=== PATIENT | male | born 1970 | race Caucasian/White ===

== ENCOUNTER 2018-07-20 22:18 | Emergency (ER) | payer OTHER ==
[~2018-07-20] VITALS: Ht 170.2 cm; Wt 79.8 kg
[2018-07-20] MEDS ORDERED: MORPHINE SULFATE 2 MG/1 ML DISP.SYRIN IV ONE (23:30)
[2018-07-20] MEDS ORDERED: CLINDAMYCIN PHOSPHATE IV 600 MG in IV DEXTROSE 5% 100 ML IV ONE (23:30)
[2018-07-20] MEDS ORDERED: ONDANSETRON 4 MG/2 ML VIAL IV ONE (23:30)
[2018-07-20] MEDS ORDERED: IV NORMAL SALINE 1000 ML BAG IV ONE (23:30)
[2018-07-20] MEDS ORDERED: DEXAMETHASONE SOD PHOSPHATE 4 MG INJ IV ONE (23:30)
[2018-07-20 23:45] LABS: BASOPHILS # (AUTO) 0.1 K/uL (0.0-8.0); EOSINOPHILS # (AUTO) 0.4 K/uL (0.0-0.7); EOSINOPHILS % (AUTO) 2.7 % (0.0-7.0); HEMATOCRIT 41.9 % (36.7-47.1); HEMOGLOBIN 14.4 g/dL (12.5-16.3); LYMPHOCYTES # (AUTO) 3.3 K/uL (20.0-40.0); LYMPHOCYTES % (AUTO) 25.3 % (20.5-51.5); MEAN CORPUSCULAR HEMOGLOBIN 32.1 uug (23.8-33.4); MEAN CORPUSCULAR HGB CONC 34 g/dL (32.5-36.3); MEAN CORPUSCULAR VOLUME 93.2 fL (73.0-96.2); MONOCYTES # (AUTO) 0.8 K/uL (2.0-10.0); MONOCYTES % (AUTO) 5.8 % (0.0-11.0); NEUTROPHILS # (AUTO) 8.5 K/uL (1.8-8.9); NEUTROPHILS % (AUTO) 65.2 % (38.5-71.5); PLATELET COUNT (AUTO) 357 K/uL (152-348); RED BLOOD CELL COUNT(AUTO) 4.49 MIL/uL (4.06-5.63)
[2018-07-20] MEDS ORDERED: ONDANSETRON 4 MG/2 ML VIAL ONE (23:49)
[2018-07-20] MEDS ORDERED: MORPHINE SULFATE 4 MG/1 ML DISP.SYRIN ONE (23:49)
[2018-07-20] MEDS ORDERED: DEXAMETHASONE SOD PHOSPHATE 10 MG INJ ONE (23:49)
[2018-07-20 23:55] LABS: BILIRUBIN,DIRECT 0.1 mg/dL (0.0-0.2); BILIRUBIN,TOTAL 0.3 mg/dL (0.2-1.0); CREATININE 0.7 mg/dL (0.6-1.3); POTASSIUM 3.7 mmol/L (3.5-5.1); TOTAL PROTEIN, SERUM 7.4 g/dL (6.4-8.2)
[2018-07-21] MEDS ORDERED: CLINDAMYCIN PHOSPHATE 600 MG/4 ML VIAL ONE (00:08)
--- NOTE | 2018-07-21 00:25 | NUR ---
Pt out of ER for CT.
[2018-07-21] MEDS ORDERED: IV NORMAL SALINE 250 ML IV ONE (00:38)
[2018-07-21] MEDS ORDERED: IOHEXOL 300MG/ML 100 ML INFUS..BTL ONE (00:38)
[2018-07-21] MEDS ORDERED: NORMAL SALINE FLUSH 10 ML DISP.SYRIN ONE (00:38)
--- NOTE | 2018-07-21 02:00 | NUR ---
Morphine 4mg and Zofran 4mg administered via IV R Forearm 18G. See downtime paperwork.
[2018-07-21] MEDS ORDERED: MORPHINE SULFATE 4 MG/1 ML DISP.SYRIN ONE (02:21)
[2018-07-21] MEDS ORDERED: ONDANSETRON 4 MG/2 ML VIAL ONE (02:21)
--- NOTE | 2018-07-21 02:25 | NUR ---
Patient discharged to home in stable conditon. Written and verbal after care instructions given. Patient verbalizes understanding of instructions. Pt out of ER with steady gait, no acute signs of distress, VSS, all belongings taken, IV site discontinued.
[2018-07-21 03:00] VITALS: BP 105/75
== END 2018-07-21 02:30 | disposition home or self-care (01) ==
LOC: ER 22:19
DX: K12.2 Cellulitis and abscess of mouth (principal); F17.200 Nicotine dependence, unspecified, uncomplicated; I25.10 Atherosclerotic heart disease of native coronary artery without angina pectoris
CPT/HCPCS: 36415; 70030-TC; 70491; 83605; 85025; 85730; 87040; A4663; J1100; J2270; J2405; J3490; J7030; J7050; J7060; Q9967

== ENCOUNTER 2019-01-01 22:16 | Emergency (ER) | payer OTHER ==
[~2019-01-01] VITALS: Ht 167.6 cm; Wt 79.4 kg
--- NOTE | 2019-01-01 22:30 | NUR ---
Pt. ambulated into ED w/ c/o flu like symptoms - weakness, general malaise, and lower back pain x 3 days, denies N/V/D
--- NOTE | 2019-01-01 22:35 | NUR ---
Dr. Alanis at bedside for MSE
--- NOTE | 2019-01-01 22:37 | NUR ---
Influenza nares specimen collected and sent to lab,
[2019-01-01] MEDS ORDERED: KETOROLAC TROMETHAMINE 30 MG INJ ONE (22:39)
--- NOTE | 2019-01-01 22:40 | NUR ---
Rad. tech. at bedside for CXR
[2019-01-01] MEDS ORDERED: KETOROLAC TROMETHAMINE 30 MG INJ IM ONE (22:45)
[2019-01-01] MEDS ORDERED: HYDROCODONE/APAP 5-325MG TABLET ONE (23:38)
[2019-01-01] MEDS ORDERED: HYDROCODONE/APAP 5-325MG TABLET PO ONE (23:45)
--- NOTE | 2019-01-01 23:48 | NUR ---
Patient discharged to home in stable conditon. Written and verbal after care instructions given. Patient verbalizes understanding of instructions. Pt. d/c w/ prescription per MD, d/c papers signed, all belongings w/ pt., ID band removed, ambulated off unit w/ steady gait w/ family, left in private vehicle, instructed not to drive, NAD
== END 2019-01-01 23:50 | disposition home or self-care (01) ==
LOC: ER 22:19
DX: B34.9 Viral infection, unspecified (principal); R07.9 Chest pain, unspecified; F17.290 Nicotine dependence, other tobacco product, uncomplicated
CPT/HCPCS: 71045; 87400; 93005; 96372; 99284; 99406; J1885; A4663

== ENCOUNTER 2019-05-02 12:37 | Emergency (ER) | payer OTHER ==
[~2019-05-02] VITALS: Ht 170.2 cm; Wt 79.4 kg
--- NOTE | 2019-05-02 12:50 | NUR ---
ADMIT PT IN RM 2A, AMBULATORY, FROM HOME, ACCOMPANIED BY . C/O ACUTE EXCRUCIATING ABDOMENAL PAIN ON LOWER RIGHT SIDE LEVEL 10. SEEN AND EXAMINED BY MD WITH NEW ORDERS. AFEBRILE. NO N/V NOTED.
[2019-05-02] MEDS ORDERED: KETOROLAC TROMETHAMINE 30 MG INJ IVP ONE (13:00)
[2019-05-02] MEDS ORDERED: IV NORMAL SALINE 500 ML BAG IV ONE (13:00)
--- NOTE | 2019-05-02 13:00 | NUR ---
STARTED AN IV ACCESS LINE G20 ON RT FA G20 PATENT AND INTACT ORDERED.
[2019-05-02 13:09] LABS: BASOPHILS # (AUTO) 0.1 K/uL (0.0-8.0); BASOPHILS % (AUTO) 1.3 % (0.0-2.0); EOSINOPHILS # (AUTO) 0.1 K/uL (0.0-0.7); EOSINOPHILS % (AUTO) 1.1 % (0.0-7.0); HEMATOCRIT 43.9 % (36.7-47.1); HEMOGLOBIN 14.7 g/dL (12.5-16.3); LYMPHOCYTES # (AUTO) 2.5 K/uL (20.0-40.0); LYMPHOCYTES % (AUTO) 33.9 % (20.5-51.5); MEAN CORPUSCULAR HEMOGLOBIN 31.1 uug (23.8-33.4); MEAN CORPUSCULAR HGB CONC 34 g/dL (32.5-36.3); MEAN CORPUSCULAR VOLUME 92.7 fL (73.0-96.2); MONOCYTES # (AUTO) 0.6 K/uL (2.0-10.0); MONOCYTES % (AUTO) 8.4 % (0.0-11.0); NEUTROPHILS # (AUTO) 4.1 K/uL (1.8-8.9); NEUTROPHILS % (AUTO) 55.3 % (38.5-71.5); PLATELET COUNT (AUTO) 339 K/uL (152-348); RED BLOOD CELL COUNT(AUTO) 4.74 MIL/uL (4.06-5.63); WHITE BLOOD COUNT (AUTO) 7.4 K/uL (3.6-10.2)
[2019-05-02] MEDS ORDERED: KETOROLAC TROMETHAMINE 30 MG INJ ONE (13:09)
--- NOTE | 2019-05-02 13:10 | NUR ---
STARTED IVF NS 500ML INFUSING WELL ORDERED. MEDICATED WITH TORADOL 30MG SLOW IVP ORDERED FOR PAIN.
[2019-05-02 13:13] LABS: CREATININE 0.8 mg/dL (0.6-1.3); POTASSIUM 3.9 mmol/L (3.5-5.1)
--- NOTE | 2019-05-02 13:15 | NUR ---
PT TAKEN DOWN TO CT SCAN VIA GURNEY FOR CT ABDOMEN.
[2019-05-02 13:19] LABS: BILIRUBIN,DIRECT 0.1 mg/dL (0.0-0.2); BILIRUBIN,TOTAL 0.4 mg/dL (0.2-1.0); TOTAL PROTEIN, SERUM 7.5 g/dL (6.4-8.2)
[2019-05-02] MEDS ORDERED: HYDROMORPHONE 1 MG/1 ML DISP.SYRIN ONE ×2 (13:45→15:10)
[2019-05-02] MEDS ORDERED: HYDROMORPHONE 1 MG/1 ML DISP.SYRIN IV ONE ×2 (13:45→15:00)
--- NOTE | 2019-05-02 13:47 | NUR ---
PT IS MEDICATED WITH DILAUDID 1MG SLOW IVP FOR PAIN ORDERED. PT RELIEVED FROM THE PAIN.
--- NOTE | 2019-05-02 14:00 | NUR ---
PT VOIDED, SENT URINE TO LAB.
[2019-05-02 14:25] LABS: *BILIRUBIN,URIN 1+ (NEGATIVE); *BLOOD, URINE 3+ (NEGATIVE); *CLARITY,URINE SLIGHTLY CLOUDY (CLEAR); *COLOR,URINE DARK YELLOW (YELLOW); *KETONES,URINE NEGATIVE (NEGATIVE); *UROBILINOGEN,URINE 0.2 E.U./dl (NORMAL); LEUKOCYTE ESTERASE ,URINE NEGATIVE (NEGATIVE); NITRITE, URINE NEGATIVE (NEGATIVE); PH,URINE 6.5 (5.0-8.0); UGLUCOSE NEGATIVE (NEGATIVE)
--- NOTE | 2019-05-02 14:30 | NUR ---
ABLE TO EAT WITHOUT ANY PROBLEM. CONDITION IS IMPROVED.
[2019-05-02 14:36] LABS: RBC,URINE 80-100 /HPF (0-3); WBC,URINE 0-3 /HPF (0-3)
[2019-05-02 14:37] LABS: BACTERIA,URINE FEW /HPF (NONE SEEN)
[2019-05-02 14:38] LABS: SQUAMOUS EPITHELIAL CELL,UR NONE SEEN /HPF (NONE SEEN)
--- NOTE | 2019-05-02 15:15 | NUR ---
DISCHARGE INSTRUCTIONS AND PRESCRIPTIONS GIVEN TO PT WITH GOOD UNDERSTANDING. PT REQUESTED TO HAVE ANOTHER PAIN MEDICATION BEFORE GOING HOME.
--- NOTE | 2019-05-02 15:20 | NUR ---
PT IS MEDICATED AGAIN WITH DILAUDID 1MG SLOW IVP ORDERED.
--- NOTE | 2019-05-02 15:50 | NUR ---
PT IS DISCHARGED AMBULATORY ACCOMPANIED BY . CONDITION IS STABLE.
[2019-05-02 16:27] VITALS: BP 153/96
== END 2019-05-02 15:20 | disposition home or self-care (01) ==
LOC: EDBD 12:38 → ER 12:38
DX: N20.0 Calculus of kidney (principal); F17.290 Nicotine dependence, other tobacco product, uncomplicated
CPT/HCPCS: 36415; 74176; 80048; 80076; 81000; 81001; 83690; 85025; 96374; 96375; 96376; 99284; 99406; J1170 ×2; J1885; A4663; J7040

== ENCOUNTER 2019-05-13 14:47 | Emergency (ER) | payer OTHER ==
[~2019-05-13] VITALS: Ht 170.2 cm; Wt 79.4 kg
[2019-05-13] MEDS ORDERED: ONDANSETRON 4 MG/2 ML VIAL IV ONE (15:15)
[2019-05-13] MEDS ORDERED: MORPHINE SULFATE 2 MG/1 ML DISP.SYRIN IV ONE (15:15)
[2019-05-13] MEDS ORDERED: IV NORMAL SALINE 1000 ML BAG IV ONE (15:15)
[2019-05-13 15:19] LABS: BASOPHILS % (AUTO) 0.2 % (0.0-2.0); EOSINOPHILS # (AUTO) 0.1 K/uL (0.0-0.7); EOSINOPHILS % (AUTO) 0.7 % (0.0-7.0); HEMATOCRIT 42.6 % (36.7-47.1); HEMOGLOBIN 14.3 g/dL (12.5-16.3); LYMPHOCYTES # (AUTO) 2.6 K/uL (20.0-40.0); LYMPHOCYTES % (AUTO) 29.8 % (20.5-51.5); MEAN CORPUSCULAR HEMOGLOBIN 31.4 uug (23.8-33.4); MEAN CORPUSCULAR HGB CONC 34 g/dL (32.5-36.3); MEAN CORPUSCULAR VOLUME 93.3 fL (73.0-96.2); MONOCYTES # (AUTO) 0.5 K/uL (2.0-10.0); MONOCYTES % (AUTO) 6.2 % (0.0-11.0); NEUTROPHILS # (AUTO) 5.4 K/uL (1.8-8.9); NEUTROPHILS % (AUTO) 63.1 % (38.5-71.5); PLATELET COUNT (AUTO) 356 K/uL (152-348); RED BLOOD CELL COUNT(AUTO) 4.56 MIL/uL (4.06-5.63); WHITE BLOOD COUNT (AUTO) 8.6 K/uL (3.6-10.2)
[2019-05-13] MEDS ORDERED: MORPHINE SULFATE 4 MG/1 ML DISP.SYRIN ONE (15:20)
[2019-05-13] MEDS ORDERED: MORPHINE SULFATE 2 MG/1 ML DISP.SYRIN ONE (15:20)
[2019-05-13] MEDS ORDERED: ONDANSETRON 4 MG/2 ML VIAL ONE (15:21)
[2019-05-13 15:29] LABS: CARBON DIOXIDE 24 mmol/L (21-32); CHLORIDE 103 mmol/L (98-107); CREATININE 0.8 mg/dL (0.6-1.3); GLUCOSE 120 mg/dL (74-106); POTASSIUM 3.8 mmol/L (3.5-5.1); UREA NITROGEN, BLOOD 13 mg/dL (7-18)
[2019-05-13 15:33] LABS: ALANINE AMINOTRANSFERASE 35 U/L (16-63); ALKALINE PHOSPHATASE 96 U/L (50-136); ASPARTATE AMINOTRANSFERASE 14 U/L (15-37); BILIRUBIN,DIRECT < 0.1 mg/dL (0.0-0.2); BILIRUBIN,TOTAL 0.2 mg/dL (0.2-1.0); LIPASE 75 U/L (73-393); TOTAL PROTEIN, SERUM 7.4 g/dL (6.4-8.2)
[2019-05-13] MEDS ORDERED: HYDROMORPHONE 1 MG/1 ML DISP.SYRIN IV ONE (16:15)
[2019-05-13] MEDS ORDERED: HYDROMORPHONE 1 MG/1 ML DISP.SYRIN ONE (16:20)
[2019-05-13] MEDS ORDERED: KETOROLAC TROMETHAMINE 30 MG INJ IVP ONE (16:30)
[2019-05-13] MEDS ORDERED: KETOROLAC TROMETHAMINE 60 MG INJ IM ONE (16:48)
[2019-05-13 17:08] LABS: *BILIRUBIN,URIN NEGATIVE (NEGATIVE); *BLOOD, URINE NEGATIVE (NEGATIVE); *CLARITY,URINE CLEAR (CLEAR); *COLOR,URINE YELLOW (YELLOW); *KETONES,URINE NEGATIVE (NEGATIVE); *UROBILINOGEN,URINE 0.2 E.U./dl (NORMAL); LEUKOCYTE ESTERASE ,URINE NEGATIVE (NEGATIVE); NITRITE, URINE NEGATIVE (NEGATIVE); UGLUCOSE NEGATIVE (NEGATIVE)
[2019-05-13 18:12] VITALS: BP 139/81
== END 2019-05-13 18:13 | disposition home or self-care (01) ==
LOC: ER 14:47
DX: N20.1 Calculus of ureter (principal); F17.200 Nicotine dependence, unspecified, uncomplicated
CPT/HCPCS: 36415; 74176; 76705; 80048; 80076; 81001; 83690; 85025; 93005; 96361; 96374; 96375; 99284; J1170; J1885; J2270 ×2; J2405; A4663; J7030

== ENCOUNTER 2019-05-16 15:59 | Inpatient (IN) | payer OTHER ==
[~2019-05-16] VITALS: Ht 170.2 cm; Wt 79.4 kg
--- NOTE | 2019-05-16 16:06 | NUR ---
RECEIVED PT AMBULATORY, GUARDING RIGHT FLANK DUE TO PAIN FOR THE PAST 3DAYS. DENIES SOB, DENIES BLOOD IN URINE. RN STARTED SALINE LOCK ON LEFT DORSAL HAND MD AT BEDSIDE FOR HISTORY AND PHYSICAL
[2019-05-16] MEDS ORDERED: KETOROLAC TROMETHAMINE 60 MG INJ IM ONE (16:11)
[2019-05-16] MEDS ORDERED: KETOROLAC TROMETHAMINE 30 MG INJ IVP ONE ×2 (16:15→18:45)
[2019-05-16] MEDS ORDERED: TAMSULOSIN HCL 0.4 MG CAP.SR.24H PO ONE (16:15)
[2019-05-16] MEDS ORDERED: ONDANSETRON IV *ER 4 MG/2 ML VIAL IV ONE (16:15)
[2019-05-16] MEDS ORDERED: IV NORMAL SALINE 1000 ML BAG IV ONE (16:15)
[2019-05-16] MEDS ORDERED: MORPHINE SULFATE 4 MG/1 ML DISP.SYRIN IV ONE (16:15)
[2019-05-16] MEDS ORDERED: MORPHINE SULFATE 4 MG/1 ML DISP.SYRIN ONE (16:22)
[2019-05-16] MEDS ORDERED: ONDANSETRON 4 MG/2 ML VIAL ONE (16:22)
[2019-05-16] MEDS ORDERED: MORPHINE SULFATE 2 MG/1 ML DISP.SYRIN ONE (16:22)
[2019-05-16 16:24] LABS: BASOPHILS # (AUTO) 0.1 K/uL (0.0-8.0); EOSINOPHILS # (AUTO) 0.1 K/uL (0.0-0.7); EOSINOPHILS % (AUTO) 1.1 % (0.0-7.0); HEMATOCRIT 44.2 % (36.7-47.1); HEMOGLOBIN 14.8 g/dL (12.5-16.3); LYMPHOCYTES # (AUTO) 3.6 K/uL (20.0-40.0); LYMPHOCYTES % (AUTO) 30.1 % (20.5-51.5); MEAN CORPUSCULAR HGB CONC 33 g/dL (32.5-36.3); MEAN CORPUSCULAR VOLUME 92.8 fL (73.0-96.2); MONOCYTES # (AUTO) 0.8 K/uL (2.0-10.0); MONOCYTES % (AUTO) 6.8 % (0.0-11.0); NEUTROPHILS # (AUTO) 7.3 K/uL (1.8-8.9); PLATELET COUNT (AUTO) 351 K/uL (152-348); RED BLOOD CELL COUNT(AUTO) 4.76 MIL/uL (4.06-5.63); WHITE BLOOD COUNT (AUTO) 11.9 K/uL (3.6-10.2)
[2019-05-16 16:28] LABS: POTASSIUM 3.9 mmol/L (3.5-5.1)
[2019-05-16 16:49] LABS: *BILIRUBIN,URIN 1+ (NEGATIVE); *BLOOD, URINE 2+ (NEGATIVE); *CLARITY,URINE CLEAR (CLEAR); *COLOR,URINE YELLOW (YELLOW); *KETONES,URINE NEGATIVE (NEGATIVE); *UROBILINOGEN,URINE 0.2 E.U./dl (NORMAL); LEUKOCYTE ESTERASE ,URINE NEGATIVE (NEGATIVE); NITRITE, URINE NEGATIVE (NEGATIVE); UGLUCOSE NEGATIVE (NEGATIVE)
[2019-05-16 17:08] LABS: BACTERIA,URINE FEW /HPF (NONE SEEN); SQUAMOUS EPITHELIAL CELL,UR FEW /HPF (NONE SEEN); WBC,URINE 0-3 /HPF (0-3)
[2019-05-16] MEDS ORDERED: HYDROMORPHONE 1 MG/1 ML DISP.SYRIN IV ONE (17:15)
[2019-05-16] MEDS ORDERED: HYDROMORPHONE 1 MG/1 ML DISP.SYRIN ONE (17:31)
--- NOTE | 2019-05-16 18:23 | NUR ---
CALLED DR. GUY FOR UROLOGY CONSULT.
[2019-05-16] MEDS ORDERED: KETOROLAC TROMETHAMINE 15 MG INJ ONE (18:51)
--- NOTE | 2019-05-16 19:08 | NUR ---
ASSUMED CARE OF PATIENT. NO ACUTE DISTRESS NOTED. VSS
--- NOTE | 2019-05-16 20:25 | NUR ---
Report given to Steffi GALARZA on Med Surg
--- NOTE | 2019-05-16 20:41 | NUR ---
ADMITTED PATIENT IN MED SURG FLOOR UNDER THE CARE OF DR. RANDLE. BELONGING LIST DONE. PATIENT ALERT ORIENTED, CONTINENT, SKIN INTACT, AT BEDSIDE, CONT ON PAIN MANAGEMENT.
[2019-05-16] MEDS ORDERED: ACETAMINOPHEN 325 MG TABLET PO PRN (21:00)
[2019-05-16] MEDS ORDERED: IV 1/2NS 1000 ML 1,000 ML IV PRN (21:00)
[2019-05-16] MEDS ORDERED: ZOLPIDEM 5 MG TABLET PO PRN (21:00)
[2019-05-16] MEDS ORDERED: ONDANSETRON 4 MG/2 ML VIAL IV PRN (21:00)
[2019-05-16] MEDS: HYDROMORPHONE 1 MG/1 ML DISP.SYRIN IV PRN (21:26)
[2019-05-16] MEDS: TAMSULOSIN HCL 0.4 MG CAP.SR.24H PO SCH (21:43)
[2019-05-16] MEDS ORDERED: CEFTRIAXONE 1 G VIAL ONE (21:48)
[2019-05-16 21:49] VITALS: BP 128/78
[2019-05-16] MEDS: CEFTRIAXONE 1 G in IV DEXTROSE 5% 50 ML IV SCH (22:22)
--- NOTE | 2019-05-16 23:00 | NUR ---
PATIENT SEEN BY DR. ALVARADO WITH NEW ORDER. WILL ENDORSED ALL INSTRUCTIONS TO AM NURSE. CONT TO MONITOR.
[2019-05-16] MEDS: IV 1/2NS 1000 ML 1,000 ML IV PRN (23:55)
[2019-05-17] MEDS: HYDROMORPHONE 1 MG/1 ML DISP.SYRIN IV PRN ×4 (00:38→22:18)
[2019-05-17] MEDS: IV 1/2NS 1000 ML 1,000 ML IV PRN ×3 (04:29→16:59)
[2019-05-17 06:25] VITALS: BP 116/73
--- NOTE | 2019-05-17 06:47 | NUR ---
PATIENT ALERT ORIENTED, NO SOB NO CHEST PAIN. CONT ON PAIN MANAGEMENT DUE RENAL COLIC DIAGNOSIS. CONT TO STRAINED ALL URINE, NO STONE SEEN YET. CALL LIGHT WITHIN REACH.
[2019-05-17 07:34] LABS: BASOPHILS % (AUTO) 0.4 % (0.0-2.0); EOSINOPHILS # (AUTO) 0.1 K/uL (0.0-0.7); EOSINOPHILS % (AUTO) 1.2 % (0.0-7.0); HEMATOCRIT 40.8 % (36.7-47.1); HEMOGLOBIN 13.4 g/dL (12.5-16.3); LYMPHOCYTES # (AUTO) 2.1 K/uL (20.0-40.0); LYMPHOCYTES % (AUTO) 20.6 % (20.5-51.5); MEAN CORPUSCULAR HEMOGLOBIN 30.9 uug (23.8-33.4); MEAN CORPUSCULAR HGB CONC 33 g/dL (32.5-36.3); MEAN CORPUSCULAR VOLUME 94.1 fL (73.0-96.2); MONOCYTES % (AUTO) 9.4 % (0.0-11.0); NEUTROPHILS # (AUTO) 6.9 K/uL (1.8-8.9); NEUTROPHILS % (AUTO) 68.4 % (38.5-71.5); PLATELET COUNT (AUTO) 317 K/uL (152-348); RED BLOOD CELL COUNT(AUTO) 4.34 MIL/uL (4.06-5.63); WHITE BLOOD COUNT (AUTO) 10.1 K/uL (3.6-10.2)
[2019-05-17 07:43] LABS: BILIRUBIN,TOTAL 0.2 mg/dL (0.2-1.0); CREATININE 0.9 mg/dL (0.6-1.3); MAGNESIUM 1.9 mg/dL (1.8-2.4); PHOSPHOROUS 3.7 mg/dL (2.5-4.9); POTASSIUM 4.1 mmol/L (3.5-5.1); TOTAL PROTEIN, SERUM 6.4 g/dL (6.4-8.2)
[2019-05-17] MEDS: KETOROLAC TROMETHAMINE 15 MG INJ IVP SCH ×4 (07:56→20:34)
[2019-05-17] MEDS: TAMSULOSIN HCL 0.4 MG CAP.SR.24H PO SCH ×2 (08:07→20:32)
[2019-05-17] MEDS ORDERED: KETOROLAC TROMETHAMINE 30 MG INJ IVP SCH (09:00)
[2019-05-17 11:53] VITALS: BP 122/66
[2019-05-17] MEDS: NICOTINE 21 MG/24HR PATCH TD SCH (14:34)
[2019-05-17 16:10] VITALS: BP 126/78
--- NOTE | 2019-05-17 19:20 | NUR ---
Received patient awake in bed, alert and oriented x 4, ambulatory. No complaints at the moment. Noted with IV access on the right forearm to ongoing IV fluid, infusing well. Noted patient for surgery tomorrow, consent attached to chart. Patient instructed to remain on nothing per [place] after midnight in preparation for surgery. Patient will be picked up by OR staff at 6am per change of shift report. Patient requesting to have a shower tonight, will have UTILITY WORKER DRIVER arrange for a shower. Patient instructed that we need to keep straining his urine, patient verbalized understanding. Will continue to monitor.
[2019-05-17 20:00] VITALS: BP 116/71
[2019-05-17] MEDS: CEFTRIAXONE 1 G in IV DEXTROSE 5% 50 ML IV SCH (21:30)
[2019-05-18] MEDS: IV 1/2NS 1000 ML 1,000 ML IV PRN ×3 (01:22→15:40)
[2019-05-18] MEDS: HYDROMORPHONE 1 MG/1 ML DISP.SYRIN IV PRN ×5 (01:28→15:40)
--- NOTE | 2019-05-18 05:54 | NUR ---
Patient slept intermittently throughout the night. Remained nothing per [place] after midnight. Noted for surgery this morning. With complaints of lower abdomen and back pain, prn pain medications given with relief noted. Will continue to monitor until OR staff takes him to surgery room. Noted patient's present at bedside.
[2019-05-18] MEDS ORDERED: FENTANYL CITRATE 100 MCG/2 ML AMPUL ONE (06:15)
[2019-05-18] MEDS ORDERED: ROCURONIUM BROMIDE 50 MG/5 ML VIAL ONE (06:15)
[2019-05-18] MEDS ORDERED: MIDAZOLAM HCL 2 MG/2 ML VIAL ONE (06:15)
--- NOTE | 2019-05-18 06:15 | NUR ---
Patient sent to OR accompanied by OR nurses via hospital bed in stable condition.
[2019-05-18 06:21] LABS: BASOPHILS % (AUTO) 0.6 % (0.0-2.0); EOSINOPHILS # (AUTO) 0.2 K/uL (0.0-0.7); EOSINOPHILS % (AUTO) 1.9 % (0.0-7.0); HEMATOCRIT 36.8 % (36.7-47.1); HEMOGLOBIN 12.2 g/dL (12.5-16.3); LYMPHOCYTES # (AUTO) 3.4 K/uL (20.0-40.0); LYMPHOCYTES % (AUTO) 42.4 % (20.5-51.5); MEAN CORPUSCULAR HGB CONC 33 g/dL (32.5-36.3); MEAN CORPUSCULAR VOLUME 93.3 fL (73.0-96.2); MONOCYTES # (AUTO) 0.6 K/uL (2.0-10.0); MONOCYTES % (AUTO) 7.5 % (0.0-11.0); NEUTROPHILS # (AUTO) 3.8 K/uL (1.8-8.9); NEUTROPHILS % (AUTO) 47.6 % (38.5-71.5); PLATELET COUNT (AUTO) 295 K/uL (152-348); RED BLOOD CELL COUNT(AUTO) 3.94 MIL/uL (4.06-5.63)
[2019-05-18 06:23] VITALS: BP 117/74
[2019-05-18] MEDS ORDERED: IOHEXOL 300MG/ML 50 ML VIAL ONE (06:27)
[2019-05-18] MEDS ORDERED: METHYLENE BLUE 50 MG/10 ML AMPUL (0.5%) ONE (06:27)
[2019-05-18 06:52] LABS: ALANINE AMINOTRANSFERASE 23 U/L (16-63); ALKALINE PHOSPHATASE 83 U/L (50-136); ASPARTATE AMINOTRANSFERASE 21 U/L (15-37); BILIRUBIN,TOTAL 0.2 mg/dL (0.2-1.0); CARBON DIOXIDE 24 mmol/L (21-32); CHLORIDE 109 mmol/L (98-107); CREATININE 0.6 mg/dL (0.6-1.3); GLUCOSE 102 mg/dL (74-106); MAGNESIUM 1.9 mg/dL (1.8-2.4); PHOSPHOROUS 3.7 mg/dL (2.5-4.9); POTASSIUM 4.2 mmol/L (3.5-5.1); TOTAL PROTEIN, SERUM 5.9 g/dL (6.4-8.2); UREA NITROGEN, BLOOD 13 mg/dL (7-18)
--- NOTE | 2019-05-18 07:10 | NUR ---
RECEIVED REPORT FROM ADMINISTRATIVE SERVICES MANAGER NURSE PATIENT IN OPERATING ROOM. WILL CONTINUE TO MONITOR.
[2019-05-18] MEDS ORDERED: METOCLOPRAMIDE HCL 10 MG/2 ML VIAL IV ONE (07:30)
[2019-05-18] MEDS ORDERED: CEFAZOLIN 1 G VIAL IV ONE (07:30)
[2019-05-18] MEDS ORDERED: ONDANSETRON 4 MG/2 ML VIAL IV ONE (07:30)
[2019-05-18] MEDS ORDERED: PROPOFOL 200 MG/20 ML BOTTLE IV ONE (07:30)
[2019-05-18] MEDS ORDERED: NEOSTIGMINE METHYLSULFATE 10 MG/10 ML VIAL IM ONE (07:30)
[2019-05-18] MEDS ORDERED: ROCURONIUM BROMIDE 50 MG/5 ML VIAL IV ONE (07:30)
[2019-05-18] MEDS ORDERED: GLYCOPYRROLATE 0.2 MG/ML VIAL IV ONE (07:30)
--- NOTE | 2019-05-18 08:30 | NUR ---
RECEIVED PATIENT FROM OR, AWAKE ALERT AND ORIENTED X4. VITAL SIGNS WNL, NO COMPLICATIONS FROM SURGERY. STENT PLACEMENT IN RIGHT URETHRA. PATIENT REPORTING PAIN 6/10. AT BEDSIDE. BED IN LOWEST POSITION, SIDE RAILS UP X2, CALL LIGHT WITHIN REACH. WILL CONTINUE TO MONITOR.
[2019-05-18] MEDS: NICOTINE 21 MG/24HR PATCH TD SCH (08:31)
[2019-05-18] MEDS: TAMSULOSIN HCL 0.4 MG CAP.SR.24H PO SCH (08:31)
[2019-05-18] MEDS: KETOROLAC TROMETHAMINE 15 MG INJ IVP SCH ×3 (08:31→17:04)
[2019-05-18 11:54] VITALS: BP 127/78
[2019-05-18 15:20] VITALS: BP 102/70
[2019-05-18] MEDS ORDERED: CIPR-262 PO (16:09)
[2019-05-18] MEDS ORDERED: ONDA4TAB11 PO (16:09)
[2019-05-18] MEDS ORDERED: NICO-672 TD (16:09)
[2019-05-18] MEDS ORDERED: HYDR-4354 PO (16:09)
[2019-05-18] MEDS ORDERED: TAMS-3 PO (16:09)
--- NOTE | 2019-05-18 17:25 | NUR ---
DISCHARGED PATIENT PER DR DIAZ. REVIEWED DC INSTRUCTIONS WITH PATIENT AND . PRESCRIPTIONS GIVEN TO PATIENT. PATIENT VERBALIZES UNDERSTANDING OF DISCHARGE INSTRUCTIONS. DC'D IV AND REMOVED ID BRACELET. ACCOMPANIED PATIENT DOWNSTAIRS WITH NO COMPLICATIONS.
== END 2019-05-18 17:29 | disposition home or self-care (01) | DRG 465 ==
LOC: ER 15:59 → MEDSURG3 20:24
PROVIDERS: ADMIT Internal Medicine; ATTEND Internal Medicine
PROC: 0T768DZ Dilation of Right Ureter with Intraluminal Device, Via Natural or Artificial Opening Endoscopic (ICD-10-PCS; principal; 2019-05-18)
DX: N13.2 Hydronephrosis with renal and ureteral calculous obstruction (principal); D69.6 Thrombocytopenia, unspecified; K80.20 Calculus of gallbladder without cholecystitis without obstruction; Z87.442 Personal history of urinary calculi; E44.1 Mild protein-calorie malnutrition; Z68.27 Body mass index [BMI] 27.0-27.9, adult; F17.210 Nicotine dependence, cigarettes, uncomplicated; E78.1 Pure hyperglyceridemia; E78.5 Hyperlipidemia, unspecified; K57.90 Diverticulosis of intestine, part unspecified, without perforation or abscess without bleeding; K76.9 Liver disease, unspecified; D72.829 Elevated white blood cell count, unspecified
CPT/HCPCS: 36415; 71045; 74018; 76770; 83735; 84100; 85025; 93005; A4663; G0378; J0690; J0696; J1170; J1885; J2250; J2270; J2405; J2710; J2765; J3010; J3490; J7030; J7060; Q9967

== ENCOUNTER 2019-05-21 13:43 | Emergency (ER) | payer OTHER ==
[~2019-05-21] VITALS: Ht 170.2 cm; Wt 79.4 kg
[~2019-05-21 13:43] MED LIST: CIPR-262 PO; HYDR-4354 PO; NICO-672 TD; ONDA4TAB11 PO; TAMS-3 PO
[2019-05-21] MEDS ORDERED: KETOROLAC TROMETHAMINE 60 MG INJ IM ONE (14:24)
[2019-05-21] MEDS ORDERED: MORPHINE SULFATE 4 MG/1 ML DISP.SYRIN ONE (14:24)
[2019-05-21] MEDS ORDERED: ONDANSETRON 4 MG/2 ML VIAL ONE (14:24)
[2019-05-21] MEDS ORDERED: ONDANSETRON 4 MG/2 ML VIAL IV ONE (14:30)
[2019-05-21] MEDS ORDERED: MORPHINE SULFATE 4 MG/1 ML DISP.SYRIN IV ONE (14:30)
[2019-05-21] MEDS ORDERED: KETOROLAC TROMETHAMINE 30 MG INJ IVP ONE (14:30)
[2019-05-21] MEDS ORDERED: IV NORMAL SALINE 1000 ML BAG IV ONE (14:30)
[2019-05-21] MEDS ORDERED: HYDROMORPHONE 1 MG/1 ML DISP.SYRIN IV ONE ×2 (14:45→16:30)
[2019-05-21] MEDS ORDERED: HYDROMORPHONE 1 MG/1 ML DISP.SYRIN ONE ×2 (14:47→16:33)
[2019-05-21 14:58] LABS: BASOPHILS # (AUTO) 0.1 K/uL (0.0-8.0); BASOPHILS % (AUTO) 0.7 % (0.0-2.0); EOSINOPHILS # (AUTO) 0.2 K/uL (0.0-0.7); EOSINOPHILS % (AUTO) 0.9 % (0.0-7.0); HEMATOCRIT 40.1 % (36.7-47.1); HEMOGLOBIN 13.4 g/dL (12.5-16.3); LYMPHOCYTES # (AUTO) 2.5 K/uL (20.0-40.0); LYMPHOCYTES % (AUTO) 14.1 % (20.5-51.5); MEAN CORPUSCULAR HEMOGLOBIN 30.8 uug (23.8-33.4); MEAN CORPUSCULAR HGB CONC 34 g/dL (32.5-36.3); MEAN CORPUSCULAR VOLUME 92.1 fL (73.0-96.2); MONOCYTES # (AUTO) 1.3 K/uL (2.0-10.0); MONOCYTES % (AUTO) 7.2 % (0.0-11.0); NEUTROPHILS # (AUTO) 13.5 K/uL (1.8-8.9); NEUTROPHILS % (AUTO) 77.1 % (38.5-71.5); PLATELET COUNT (AUTO) 371 K/uL (152-348); RED BLOOD CELL COUNT(AUTO) 4.36 MIL/uL (4.06-5.63); WHITE BLOOD COUNT (AUTO) 17.5 K/uL (3.6-10.2)
[2019-05-21 15:17] LABS: BILIRUBIN,TOTAL 0.4 mg/dL (0.2-1.0); CREATININE 0.9 mg/dL (0.6-1.3); POTASSIUM 3.7 mmol/L (3.5-5.1)
[2019-05-21 15:43] LABS: *BLOOD, URINE 3+ (NEGATIVE); *CLARITY,URINE CLOUDY (CLEAR); *COLOR,URINE Brown (YELLOW); *KETONES,URINE TRACE (NEGATIVE); *UROBILINOGEN,URINE 0.2 E.U./dl (NORMAL); LEUKOCYTE ESTERASE ,URINE 1+ (NEGATIVE); NITRITE, URINE NEGATIVE (NEGATIVE); PH,URINE 6.5 (5.0-8.0); UGLUCOSE NEGATIVE (NEGATIVE)
[2019-05-21 16:00] LABS: *BILIRUBIN,URIN 1+ (NEGATIVE)
[2019-05-21 16:01] LABS: BACTERIA,URINE NONE SEEN /HPF (NONE SEEN); RBC,URINE 50-80 /HPF (0-3)
[2019-05-21 16:02] LABS: SQUAMOUS EPITHELIAL CELL,UR FEW /HPF (NONE SEEN)
--- NOTE | 2019-05-21 17:30 | NUR ---
Patient discharged to home in stable conditon. Written and verbal after care instructions given. Patient verbalizes understanding of instructions.
== END 2019-05-21 17:31 | disposition home or self-care (01) ==
LOC: ER 13:43
DX: G89.18 Other acute postprocedural pain (principal); R10.9 Unspecified abdominal pain; F17.200 Nicotine dependence, unspecified, uncomplicated; Z96.0 Presence of urogenital implants; Z79.2 Long term (current) use of antibiotics; Z79.899 Other long term (current) drug therapy
CPT/HCPCS: 36415; 74176; 76770; 80053; 81000; 81001; 85025; 87086; 96374; 96375; 96376; 99284; J1170 ×2; J1885; J2270; J2405; A4663; J7030

== ENCOUNTER 2019-06-02 22:12 | Inpatient (IN) | payer OTHER ==
[~2019-06-02] VITALS: Ht 170.2 cm; Wt 75.3 kg
[~2019-06-02 22:12] MED LIST changes: -NICO-672 TD
[2019-06-02] MEDS ORDERED: GABAPENTIN 600 MG (22:27)
[2019-06-02] MEDS ORDERED: OXYCODONE (22:27)
[2019-06-02] MEDS ORDERED: ACETAMINOPHEN (22:27)
[2019-06-02] MEDS ORDERED: SULFAMETHOXAZOLE/TRIMETHOPRIM (22:27)
[2019-06-02] MEDS ORDERED: DOCU-141 PO (22:27)
[2019-06-02] MEDS ORDERED: ONDANSETRON 4 MG/2 ML VIAL IV ONE (23:00)
[2019-06-02] MEDS ORDERED: MORPHINE SULFATE 4 MG/1 ML DISP.SYRIN IV ONE (23:00)
[2019-06-02] MEDS ORDERED: IV NORMAL SALINE 1000 ML BAG IV ONE (23:00)
[2019-06-02] MEDS ORDERED: MORPHINE SULFATE 4 MG/1 ML DISP.SYRIN ONE (23:13)
[2019-06-02] MEDS ORDERED: ONDANSETRON 4 MG/2 ML VIAL ONE (23:14)
[2019-06-02 23:26] LABS: BASOPHILS # (AUTO) 0.1 K/uL (0.0-8.0); BASOPHILS % (AUTO) 1.2 % (0.0-2.0); EOSINOPHILS # (AUTO) 0.3 K/uL (0.0-0.7); EOSINOPHILS % (AUTO) 2.9 % (0.0-7.0); HEMATOCRIT 38.7 % (36.7-47.1); HEMOGLOBIN 13.1 g/dL (12.5-16.3); LYMPHOCYTES # (AUTO) 3.2 K/uL (20.0-40.0); LYMPHOCYTES % (AUTO) 34.1 % (20.5-51.5); MEAN CORPUSCULAR HEMOGLOBIN 31.7 uug (23.8-33.4); MEAN CORPUSCULAR HGB CONC 34 g/dL (32.5-36.3); MEAN CORPUSCULAR VOLUME 93.5 fL (73.0-96.2); MONOCYTES # (AUTO) 0.7 K/uL (2.0-10.0); MONOCYTES % (AUTO) 7.6 % (0.0-11.0); NEUTROPHILS # (AUTO) 5.1 K/uL (1.8-8.9); NEUTROPHILS % (AUTO) 54.2 % (38.5-71.5); PLATELET COUNT (AUTO) 402 K/uL (152-348); RED BLOOD CELL COUNT(AUTO) 4.14 MIL/uL (4.06-5.63); WHITE BLOOD COUNT (AUTO) 9.3 K/uL (3.6-10.2)
[2019-06-02] MEDS ORDERED: HYDROMORPHONE 1 MG/1 ML DISP.SYRIN IV ONE (23:45)
[2019-06-02] MEDS ORDERED: HYDROMORPHONE 1 MG/1 ML DISP.SYRIN ONE (23:49)
[2019-06-02 23:59] LABS: BILIRUBIN,DIRECT 0.1 mg/dL (0.0-0.2); BILIRUBIN,TOTAL 0.2 mg/dL (0.2-1.0); CREATININE 0.9 mg/dL (0.6-1.3); POTASSIUM 3.7 mmol/L (3.5-5.1); TOTAL PROTEIN, SERUM 6.8 g/dL (6.4-8.2)
[2019-06-03] MEDS ORDERED: CEFTRIAXONE 1 G in IV DEXTROSE 5% 50 ML IV ONE ×2
[2019-06-03] MEDS ORDERED: CEFTRIAXONE 1 G VIAL ONE (00:06)
[2019-06-03 00:30] VITALS: BP 131/80
[2019-06-03] MEDS ORDERED: MAGNESIUM HYDROXIDE 30 ML LIQUID UDC PO PRN (01:30)
[2019-06-03] MEDS ORDERED: ONDANSETRON 4 MG/2 ML VIAL IV PRN (01:30)
[2019-06-03] MEDS ORDERED: ACETAMINOPHEN 325 MG TABLET PO PRN (01:30)
[2019-06-03] MEDS: MORPHINE SULFATE 4 MG/1 ML DISP.SYRIN IV PRN ×3 (01:55→08:43)
[2019-06-03] MEDS ORDERED: IV NS 1000 ML 1,000 ML IV PRN (02:00)
[2019-06-03 05:57] VITALS: BP 117/66
[2019-06-03 10:17] LABS: *BILIRUBIN,URIN NEGATIVE (NEGATIVE); *BLOOD, URINE 3+ (NEGATIVE); *CLARITY,URINE SLIGHTLY CLOUDY (CLEAR); *COLOR,URINE YELLOW (YELLOW); *KETONES,URINE NEGATIVE (NEGATIVE); *UROBILINOGEN,URINE 0.2 E.U./dl (NORMAL); LEUKOCYTE ESTERASE ,URINE 1+ (NEGATIVE); NITRITE, URINE NEGATIVE (NEGATIVE); PH,URINE 6.5 (5.0-8.0); UGLUCOSE NEGATIVE (NEGATIVE)
[2019-06-03 10:46] LABS: RBC,URINE 50-80 /HPF (0-3)
[2019-06-03 10:47] LABS: BACTERIA,URINE FEW /HPF (NONE SEEN); SQUAMOUS EPITHELIAL CELL,UR FEW /HPF (NONE SEEN)
[2019-06-03] MEDS: HYDROMORPHONE 1 MG/1 ML DISP.SYRIN IV PRN ×2 (11:27→15:44)
[2019-06-03 11:41] VITALS: BP 105/71
[2019-06-03 16:00] VITALS: BP 114/80
[2019-06-03] MEDS ORDERED: TAMSULOSIN HCL 0.4 MG CAP.SR.24H PO SCH (21:00)
== END 2019-06-03 19:15 | disposition home or self-care (01) | DRG 465 ==
LOC: ER 22:12 → MEDSURG3 23:55
PROVIDERS: ADMIT Nurse Practitioner Acute Care; ATTEND Nurse Practitioner Acute Care
DX: N20.0 Calculus of kidney (principal); N02.9 Recurrent and persistent hematuria with unspecified morphologic changes; N20.1 Calculus of ureter; R10.9 Unspecified abdominal pain; Z87.442 Personal history of urinary calculi; Z82.49 Family history of ischemic heart disease and other diseases of the circulatory system; Z96.0 Presence of urogenital implants
CPT/HCPCS: 36415; 83690; 85025; 87086; A4663; G0378; J0696; J1170; J2270; J2405; J7030

== ENCOUNTER 2019-07-18 20:27 | Emergency (ER) | payer OTHER ==
[~2019-07-18] VITALS: Ht 170.2 cm; Wt 76.2 kg
[~2019-07-18 20:27] MED LIST changes: +ACETAMINOPHEN; -CIPR-262 PO; +DOCU-141 PO; +GABAPENTIN 600 MG; -HYDR-4354 PO; -ONDA4TAB11 PO; +OXYCODONE; +SULFAMETHOXAZOLE/TRIMETHOPRIM
[2019-07-18] MEDS ORDERED: HYDROMORPHONE 1 MG/1 ML DISP.SYRIN IM ONE (20:45)
[2019-07-18] MEDS ORDERED: HYDROMORPHONE 1 MG/1 ML DISP.SYRIN ONE (20:45)
[2019-07-18] MEDS ORDERED: ONDANSETRON 4 MG/2 ML VIAL ONE (20:45)
[2019-07-18] MEDS ORDERED: ONDANSETRON 4 MG/2 ML VIAL IM ONE (20:45)
--- NOTE | 2019-07-18 21:00 | NUR ---
Patient discharged to home in stable conditon. Written and verbal after care instructions given. Patient verbalizes understanding of instructions. Pt walked out of ER via crutches, states will drive him home. No acute distress noted.
[2019-07-18 21:02] VITALS: BP 121/80
== END 2019-07-18 21:03 | disposition home or self-care (01) ==
LOC: ER 20:27
DX: S90.32XA Contusion of left foot, initial encounter (principal); F17.200 Nicotine dependence, unspecified, uncomplicated; Z88.1 Allergy status to other antibiotic agents; Z79.899 Other long term (current) drug therapy; W20.8XXA Other cause of strike by thrown, projected or falling object, initial encounter; Y93.89 Activity, other specified; Y92.89 Other specified places as the place of occurrence of the external cause; Y99.8 Other external cause status
CPT/HCPCS: 73630; 96372 ×2; 99283; J1170; J2405; A4663

== ENCOUNTER 2019-11-27 14:05 | Emergency (ER) | payer OTHER ==
[~2019-11-27] VITALS: Ht 170.2 cm; Wt 77.1 kg
--- NOTE | 2019-11-27 15:38 | NUR ---
Dr Madrid at the bedside for MSE.
[2019-11-27] MEDS ORDERED: ONDANSETRON 4 MG/2 ML VIAL IM ONE ×2 (16:00→16:45)
[2019-11-27] MEDS ORDERED: HYDROMORPHONE 1 MG/1 ML DISP.SYRIN IM ONE ×2 (16:00→16:45)
[2019-11-27] MEDS ORDERED: ONDANSETRON 4 MG/2 ML VIAL ONE ×2 (16:01→16:45)
[2019-11-27] MEDS ORDERED: HYDROMORPHONE 2 MG/1 ML DISP.SYRIN ONE (16:01)
[2019-11-27 16:12] LABS: *BILIRUBIN,URIN NEGATIVE (NEGATIVE); *BLOOD, URINE NEGATIVE (NEGATIVE); *CLARITY,URINE CLEAR (CLEAR); *COLOR,URINE YELLOW (YELLOW); *KETONES,URINE NEGATIVE (NEGATIVE); *UROBILINOGEN,URINE 0.2 E.U./dl (NORMAL); LEUKOCYTE ESTERASE ,URINE NEGATIVE (NEGATIVE); NITRITE, URINE NEGATIVE (NEGATIVE); UGLUCOSE NEGATIVE (NEGATIVE)
[2019-11-27] MEDS ORDERED: HYDROMORPHONE 1 MG/1 ML DISP.SYRIN ONE (16:45)
[2019-11-27 16:52] VITALS: BP 110/78
--- NOTE | 2019-11-27 16:53 | NUR ---
Patient discharged to home in stable conditon. Written and verbal after care instructions given. Patient verbalizes understanding of instructions. Pt left Er accompained by .
[2019-12-04] MEDS ORDERED: ATOR40TA PO (11:19)
[2019-12-04] MEDS ORDERED: ASPI-605 PO (11:19)
[2019-12-04] MEDS ORDERED: OXYC-133 PO (11:19)
== END 2019-11-27 16:54 | disposition home or self-care (01) ==
LOC: ER 14:17
DX: G62.9 Polyneuropathy, unspecified (principal); F17.200 Nicotine dependence, unspecified, uncomplicated; Z88.1 Allergy status to other antibiotic agents; Z79.899 Other long term (current) drug therapy
CPT/HCPCS: 72040; 81001; 96372 ×4; 99284; J1170 ×2; J2405 ×2; A4663

== ENCOUNTER 2019-12-02 04:09 | Inpatient (IN) | payer OTHER ==
[~2019-12-02] VITALS: Ht 167.6 cm; Wt 79.8 kg
[2019-12-02] MEDS ORDERED: NITROGLYCERIN OINT 1 GM PACKET TP ONE ×2 (04:30→04:32)
[2019-12-02] MEDS ORDERED: ONDANSETRON 4 MG/2 ML VIAL IV ONE (04:30)
[2019-12-02] MEDS ORDERED: NITROGLYCERIN 0.4 MG/TAB BOTTLE SL ONE ×2 (04:30→04:33)
[2019-12-02] MEDS ORDERED: HYDROCODONE/APAP 10-325 MG TABLET PO ONE (04:30)
[2019-12-02] MEDS ORDERED: ASPIRIN 81 MG TAB.CHEW PO ONE (04:30)
[2019-12-02] MEDS ORDERED: HYDROMORPHONE HCL 2 MG TABLET PO ONE (04:30)
[2019-12-02] MEDS ORDERED: ASPI81TA31 PO (04:31)
[2019-12-02] MEDS ORDERED: ASPIRIN 81 MG TAB.CHEW ONE (04:32)
[2019-12-02] MEDS ORDERED: ONDANSETRON 4 MG/2 ML VIAL ONE (04:33)
[2019-12-02] MEDS ORDERED: HYDROMORPHONE HCL 2 MG TABLET ONE (04:33)
[2019-12-02 04:43] LABS: BASOPHILS # (AUTO) 0.2 K/uL (0.0-8.0); BASOPHILS % (AUTO) 1.4 % (0.0-2.0); EOSINOPHILS # (AUTO) 0.2 K/uL (0.0-0.7); EOSINOPHILS % (AUTO) 1.5 % (0.0-7.0); HEMATOCRIT 41.5 % (36.7-47.1); HEMOGLOBIN 14.4 g/dL (12.5-16.3); LYMPHOCYTES # (AUTO) 3.1 K/uL (20.0-40.0); LYMPHOCYTES % (AUTO) 27.1 % (20.5-51.5); MEAN CORPUSCULAR HEMOGLOBIN 32.2 uug (23.8-33.4); MEAN CORPUSCULAR HGB CONC 35 g/dL (32.5-36.3); MEAN CORPUSCULAR VOLUME 92.6 fL (73.0-96.2); MONOCYTES # (AUTO) 0.9 K/uL (2.0-10.0); MONOCYTES % (AUTO) 7.5 % (0.0-11.0); NEUTROPHILS # (AUTO) 7.2 K/uL (1.8-8.9); NEUTROPHILS % (AUTO) 62.5 % (38.5-71.5); PLATELET COUNT (AUTO) 373 K/uL (152-348); RED BLOOD CELL COUNT(AUTO) 4.48 MIL/uL (4.06-5.63); WHITE BLOOD COUNT (AUTO) 11.5 K/uL (3.6-10.2)
[2019-12-02 04:50] LABS: CREATININE 0.7 mg/dL (0.6-1.3); POTASSIUM 3.8 mmol/L (3.5-5.1)
[2019-12-02 05:02] LABS: BILIRUBIN,DIRECT 0.1 mg/dL (0.0-0.2); BILIRUBIN,TOTAL 0.2 mg/dL (0.2-1.0); TOTAL PROTEIN, SERUM 7.4 g/dL (6.4-8.2)
--- NOTE | 2019-12-02 05:35 | NUR ---
Pt is resting comfortably in bed. States chest pain subsided. Vital signs stable.
--- NOTE | 2019-12-02 06:14 | NUR ---
Spoke with Starla (case investigator) about patient status. She will call back regarding transfer info.
--- NOTE | 2019-12-02 06:57 | NUR ---
Pt's insurance states they are unable to find bed for pt. Was given authorization for pt to be admitted here.
--- NOTE | 2019-12-02 07:45 | NUR ---
SHAHEEN MERCER NP AT BEDSIDE.
--- NOTE | 2019-12-02 08:11 | NUR ---
pt transfered to floor in stable condition.
--- NOTE | 2019-12-02 08:13 | NUR ---
DR. JOHNSTON, RETAIL CUSTOMER SERVICE REPRESENTATIVE AT BEDSIDE.
[2019-12-02] MEDS ORDERED: SWABABLE VALVE TRANSFER SET EA MC ONE (08:32)
--- NOTE | 2019-12-02 08:32 | NUR ---
PT WILL BE GOING TO CT SCAN PER DR. JOHNSTON AND ER ORDER AND AFTER CT WILL GO TO FLOOR.
[2019-12-02] MEDS ORDERED: IV NORMAL SALINE 250 ML IV ONE ×2 (08:33→09:30)
[2019-12-02] MEDS ORDERED: IOHEXOL 350 100 ML INFUS..BTL ONE (08:33)
[2019-12-02] MEDS ORDERED: ACETAMINOPHEN 325 MG TABLET PO PRN (09:00)
[2019-12-02] MEDS ORDERED: ZOLPIDEM 5 MG TABLET PO PRN (09:00)
[2019-12-02] MEDS ORDERED: MORPHINE SULFATE 2 MG/1 ML DISP.SYRIN IV PRN (09:00)
[2019-12-02] MEDS ORDERED: ONDANSETRON 4 MG/2 ML VIAL IV PRN (09:00)
[2019-12-02] MEDS ORDERED: MAGNESIUM HYDROXIDE 30 ML LIQUID UDC PO PRN (09:00)
--- NOTE | 2019-12-02 09:00 | NUR ---
Admitted 49 year old male to [facility] with dx of chest pain r/o ACS. Patient is AAOx4. Verbalizing chest pain is relieved but has back and arm/hand pain of 10/10; will medicate appropriately. SR on the monitor. IV on L AC intact and patent. Ambulatory. Admission and initial assessment completed. Plan of care initiated. Safety measures implemented. Will continue to monitor.
[2019-12-02] MEDS: HYDROMORPHONE 1 MG/1 ML DISP.SYRIN IV PRN ×3 (12:21→19:59)
[2019-12-02 12:26] VITALS: BP 105/65
[2019-12-02 16:26] VITALS: BP 96/51
[2019-12-02] MEDS: HYDROCODONE/APAP 5-325MG TABLET PO PRN (16:35)
--- NOTE | 2019-12-02 19:00 | NUR ---
PATIENT ALERT ORIENTED NO SOB NO CHEST PAIN, TELE MONITOR SINUS RHYTHM AT THIS TIME. PATIENT ON CONTINUES PAIM CHADWICK Addendum: 12/02/19 at 2025 by MIKAL ALDRIDGE RN PATIENT ALERT ORIENTED NO SOB NO CHEST PAIN, TELE MONITOR SINUS RHYTHM AT THIS TIME. PATIENT ON CONTINUES PAIN CHADWICK CHARTING IN ERROR.
--- NOTE | 2019-12-02 19:45 | NUR ---
PATIENT ALERT ORIENTED, NO SOB NO CHEST PAIN, TELE MONITOR SINUS RHYTHM AT THIS TIME. PATIENT STILL COMPLAIN OF BACK PAIN, CONT ON PAIN MANAGEMENT. CALL LIGHT WITHIN REACH, CONT TO MONITOR.
[2019-12-02 19:59] VITALS: BP 92/53
[2019-12-02] MEDS: ATORVASTATIN 40 MG TABLET PO SCH (20:13)
--- NOTE | 2019-12-02 20:16 | NUR ---
PATIENT FOR CARDIAC CT [facility] TOMORROW IN AM..NPO AFTER MIDNIGHT. NOTIFY THE PATIENT.
[2019-12-02 20:39] LABS: *BILIRUBIN,URIN NEGATIVE (NEGATIVE); *BLOOD, URINE NEGATIVE (NEGATIVE); *CLARITY,URINE CLEAR (CLEAR); *COLOR,URINE YELLOW (YELLOW); *KETONES,URINE TRACE (NEGATIVE); *UROBILINOGEN,URINE 0.2 E.U./dl (NORMAL); LEUKOCYTE ESTERASE ,URINE NEGATIVE (NEGATIVE); NITRITE, URINE NEGATIVE (NEGATIVE); UGLUCOSE NEGATIVE (NEGATIVE)
[2019-12-02 20:49] LABS: *AMPHETAMINE, URINE NEGATIVE (NEGATIVE); *BARBITURATE, URINE NEGATIVE (NEGATIVE); *CANNABINOID, URINE NEGATIVE (NEGATIVE); *COCCAINE, URINE NEGATIVE (NEGATIVE); *OPIATE, URINE POSITIVE (NEGATIVE); *PHENCYCLIDINE SCREEN,URINE NEGATIVE (NEGATIVE)
[2019-12-02 21:33] LABS: MUCUS,URINE MANY /LPF (0-FEW)
[2019-12-03] VITALS: BP 120/63
[2019-12-03] MEDS: HYDROMORPHONE 1 MG/1 ML DISP.SYRIN IV PRN ×6 (00:06→21:12)
[2019-12-03 04:00] VITALS: BP 99/68
--- NOTE | 2019-12-03 05:05 | NUR ---
PATIENT SLEPT MOST OF THE NIGHT, NO SOB NO CHEST PAIN, TELE MONITOR SINUS RHYTHM AT THIS TIME, CONT ON PAIN MANAGEMENT OF HANDS AND ARMS, REMAIN NPO. CONT TO MONITOR.
[2019-12-03] MEDS: PANTOPRAZOLE SODIUM 40 MG TABLET.DR PO SCH (06:42)
[2019-12-03 08:45] LABS: BASOPHILS # (AUTO) 0.1 K/uL (0.0-8.0); BASOPHILS % (AUTO) 0.9 % (0.0-2.0); EOSINOPHILS # (AUTO) 0.1 K/uL (0.0-0.7); EOSINOPHILS % (AUTO) 1.6 % (0.0-7.0); HEMATOCRIT 42.7 % (36.7-47.1); HEMOGLOBIN 14.3 g/dL (12.5-16.3); LYMPHOCYTES # (AUTO) 2.6 K/uL (20.0-40.0); LYMPHOCYTES % (AUTO) 33.5 % (20.5-51.5); MEAN CORPUSCULAR HEMOGLOBIN 32.1 uug (23.8-33.4); MEAN CORPUSCULAR HGB CONC 34 g/dL (32.5-36.3); MEAN CORPUSCULAR VOLUME 95.6 fL (73.0-96.2); MONOCYTES # (AUTO) 0.8 K/uL (2.0-10.0); MONOCYTES % (AUTO) 9.7 % (0.0-11.0); NEUTROPHILS # (AUTO) 4.3 K/uL (1.8-8.9); NEUTROPHILS % (AUTO) 54.3 % (38.5-71.5); PLATELET COUNT (AUTO) 335 K/uL (152-348); RED BLOOD CELL COUNT(AUTO) 4.46 MIL/uL (4.06-5.63); WHITE BLOOD COUNT (AUTO) 7.8 K/uL (3.6-10.2)
[2019-12-03 09:00] LABS: BILIRUBIN,TOTAL 0.3 mg/dL (0.2-1.0); CREATININE 0.7 mg/dL (0.6-1.3); POTASSIUM 4.1 mmol/L (3.5-5.1); TOTAL PROTEIN, SERUM 6.9 g/dL (6.4-8.2)
[2019-12-03] MEDS ORDERED: ASPIRIN 81 MG TAB.CHEW PO SCH (09:00)
[2019-12-03] MEDS: ASPIRIN 81 MG TAB.CHEW PO SCH (09:00)
--- NOTE | 2019-12-03 09:00 | NUR ---
MEDICATED WITH DILAUDID ORDERED PER PATIENTS REQUEST.WILL CHECK EFFECTIVENESS
--- NOTE | 2019-12-03 10:45 | NUR ---
PATIENT PICKED UP BY AMBULANCE TO [facility] FOR CT CARDIAC ORDERED
[2019-12-03 11:22] VITALS: BP 116/72
--- NOTE | 2019-12-03 12:35 | NUR ---
PATIENT RETURNED FROM [facility] CT CARDIO IN SATISFACTORY CONDITION AWAITING FOR REPORTS FROM [place].
[2019-12-03 15:52] VITALS: BP 105/62
--- NOTE | 2019-12-03 17:12 | NUR ---
UP AND OUT IN THE HALLWAY AMBULATING STILL COMPLAINING OF PAIN AND NUMGNESS ON BOTH LEFT AND RIGHT ARM FINGERS BUT IS ABLE TO MOVE THEM MEDICATED FOR PAIN ORDERED PER HIS REQUEST TELE DISCONTINUED MADE COMFORTABLE WILL CONTINUE TO OBSERVE.
[2019-12-03 20:36] VITALS: BP 126/90
[2019-12-03] MEDS: ATORVASTATIN 40 MG TABLET PO SCH (21:12)
[2019-12-04] MEDS: HYDROMORPHONE 1 MG/1 ML DISP.SYRIN IV PRN ×4 (01:12→13:15)
[2019-12-04 04:54] VITALS: BP 119/77
[2019-12-04] MEDS: PANTOPRAZOLE SODIUM 40 MG TABLET.DR PO SCH (06:32)
--- NOTE | 2019-12-04 06:49 | NUR ---
PATIENT SLEPT WELL LAST NIGHT , PAIN MANAGED BY DILAUDED, COMPLAINS OF HAND AND ARM PAIN. DENIES CHEST PAIN. DENIES ANY ACUTE CHANGES. PATIENT IS IN NO DISTRESS AT THIS TIME. ENDORSED TO AM SHIFT NURSE.
[2019-12-04 07:08] LABS: BASOPHILS # (AUTO) 0.1 K/uL (0.0-8.0); BASOPHILS % (AUTO) 0.7 % (0.0-2.0); EOSINOPHILS # (AUTO) 0.1 K/uL (0.0-0.7); HEMATOCRIT 44.3 % (36.7-47.1); HEMOGLOBIN 14.6 g/dL (12.5-16.3); LYMPHOCYTES # (AUTO) 2.4 K/uL (20.0-40.0); LYMPHOCYTES % (AUTO) 34.1 % (20.5-51.5); MEAN CORPUSCULAR HEMOGLOBIN 31.5 uug (23.8-33.4); MEAN CORPUSCULAR HGB CONC 33 g/dL (32.5-36.3); MEAN CORPUSCULAR VOLUME 95.7 fL (73.0-96.2); MONOCYTES # (AUTO) 0.7 K/uL (2.0-10.0); MONOCYTES % (AUTO) 10.3 % (0.0-11.0); NEUTROPHILS # (AUTO) 3.7 K/uL (1.8-8.9); NEUTROPHILS % (AUTO) 52.9 % (38.5-71.5); PLATELET COUNT (AUTO) 341 K/uL (152-348); RED BLOOD CELL COUNT(AUTO) 4.63 MIL/uL (4.06-5.63)
[2019-12-04 07:34] LABS: CREATININE 0.7 mg/dL (0.6-1.3); POTASSIUM 3.8 mmol/L (3.5-5.1)
[2019-12-04] MEDS: ASPIRIN 81 MG TAB.CHEW PO SCH (08:10)
[2019-12-04] MEDS: HYDROCODONE/APAP 5-325MG TABLET PO PRN ×2 (08:11→12:15)
[2019-12-04 11:02] VITALS: BP 123/79
[2019-12-04] MEDS ORDERED: ASPI-605 PO (11:19)
[2019-12-04] MEDS ORDERED: OXYC-133 PO (11:19)
[2019-12-04] MEDS ORDERED: ATOR40TA PO (11:19)
--- NOTE | 2019-12-04 12:50 | NUR ---
patient request Dun[place], took the Dunstable out too soon , but administer Dunstable to patient on the time it's due.
--- NOTE | 2019-12-04 13:45 | NUR ---
RECEIVED DISCHARGE ORDER TO HOME VIA PRIVATE CAR WITH , DISCHARGE INSTRUCTION AND PRESCRIPTION GIVEN WITH MEDICATION EXPLANATION BY RHEA THE PHARMACIST, VERBALIZED UNDERSTANDING. IV AND ID BAND REMOVED. QUESTIONS AND CONCERNS ADDRESSED BELONGINGS ACCOUNTED FOR AND SIGNED. ALL NEEDS ATTENDED.
== END 2019-12-04 13:45 | disposition home or self-care (01) | DRG 347 ==
LOC: ER 04:11 → TELE3 08:14 → MEDSURG3 12-03 15:35
PROVIDERS: ADMIT Nurse Practitioner Acute Care; ATTEND Nurse Practitioner Acute Care
PROC: B2211ZZ Computerized Tomography (CT Scan) of Multiple Coronary Arteries using Low Osmolar Contrast (ICD-10-PCS; principal; 2019-12-03)
DX: M48.02 Spinal stenosis, cervical region (principal); J43.9 Emphysema, unspecified; R07.89 Other chest pain; I25.10 Atherosclerotic heart disease of native coronary artery without angina pectoris; M50.11 Cervical disc disorder with radiculopathy, high cervical region; R20.2 Paresthesia of skin; Z95.5 Presence of coronary angioplasty implant and graft; G89.4 Chronic pain syndrome; K80.20 Calculus of gallbladder without cholecystitis without obstruction; F17.210 Nicotine dependence, cigarettes, uncomplicated; D72.829 Elevated white blood cell count, unspecified; J98.11 Atelectasis; Z79.82 Long term (current) use of aspirin; Z87.442 Personal history of urinary calculi
CPT/HCPCS: 36415; 70030-TC; 71045; 72125; 80307; 83690; 83735; 84100; 85025; 93005; A4663; G0378; J1170; J2270; J2405; J7050; Q9967

== ENCOUNTER 2021-02-19 00:48 | Emergency (ER) | payer OTHER ==
[~2021-02-19] VITALS: Ht 170.2 cm; Wt 77.1 kg
[~2021-02-19 00:48] MED LIST changes: -ACETAMINOPHEN; +ASPI-605 PO; +ASPI81TA31 PO; +ATOR40TA PO; -DOCU-141 PO; -GABAPENTIN 600 MG; +OXYC-133 PO; -OXYCODONE; -SULFAMETHOXAZOLE/TRIMETHOPRIM; -TAMS-3 PO
--- NOTE | 2021-02-19 00:55 | NUR ---
Dr. Melvin in room with patient
[2021-02-19] MEDS ORDERED: ONDANSETRON 4 MG/2 ML VIAL IV ONE (01:45)
[2021-02-19] MEDS ORDERED: MORPHINE SULFATE 2 MG/1 ML DISP.SYRIN IV ONE (01:45)
[2021-02-19] MEDS ORDERED: IV NORMAL SALINE 1000 ML BAG IV ONE (01:45)
[2021-02-19 01:49] LABS: BASOPHILS # (AUTO) 0.1 K/uL (0.0-8.0); BASOPHILS % (AUTO) 0.6 % (0.0-2.0); EOSINOPHILS # (AUTO) 0.2 K/uL (0.0-0.7); EOSINOPHILS % (AUTO) 2.2 % (0.0-7.0); HEMATOCRIT 40.4 % (36.7-47.1); HEMOGLOBIN 13.7 g/dL (12.5-16.3); LYMPHOCYTES # (AUTO) 3.7 K/uL (20.0-40.0); LYMPHOCYTES % (AUTO) 34.4 % (20.5-51.5); MEAN CORPUSCULAR HEMOGLOBIN 31.9 uug (23.8-33.4); MEAN CORPUSCULAR HGB CONC 34 g/dL (32.5-36.3); MONOCYTES # (AUTO) 0.7 K/uL (2.0-10.0); MONOCYTES % (AUTO) 6.6 % (0.0-11.0); NEUTROPHILS # (AUTO) 6.1 K/uL (1.8-8.9); NEUTROPHILS % (AUTO) 56.2 % (38.5-71.5); PLATELET COUNT (AUTO) 390 K/uL (152-348); RED BLOOD CELL COUNT(AUTO) 4.29 MIL/uL (4.06-5.63); WHITE BLOOD COUNT (AUTO) 10.9 K/uL (3.6-10.2)
[2021-02-19] MEDS ORDERED: MORPHINE SULFATE 4 MG/1 ML DISP.SYRIN ONE (01:55)
[2021-02-19 01:56] LABS: CREATININE 0.7 mg/dL (0.6-1.3); POTASSIUM 3.7 mmol/L (3.5-5.1)
[2021-02-19] MEDS ORDERED: ONDANSETRON 4 MG/2 ML VIAL ONE (01:56)
[2021-02-19 02:01] LABS: BILIRUBIN,DIRECT 0.1 mg/dL (0.0-0.2); BILIRUBIN,TOTAL 0.2 mg/dL (0.2-1.0); TOTAL PROTEIN, SERUM 7.2 g/dL (6.4-8.2)
[2021-02-19] MEDS ORDERED: FENTANYL CITRATE 100 MCG/2 ML AMPUL ONE (03:15)
[2021-02-19] MEDS ORDERED: FENTANYL CITRATE 100 MCG/2 ML AMPUL IV ONE (03:15)
[2021-02-19] MEDS ORDERED: PANTOPRAZOLE SODIUM 40 MG VIAL ONE (03:28)
[2021-02-19] MEDS ORDERED: PANTOPRAZOLE SODIUM 40 MG VIAL IV ONE (03:30)
[2021-02-19] MEDS ORDERED: SWABABLE VALVE TRANSFER SET EA MC ONE (03:46)
[2021-02-19] MEDS ORDERED: IOHEXOL 300MG/ML 100 ML INFUS..BTL ONE (03:46)
[2021-02-19] MEDS ORDERED: IV NORMAL SALINE 250 ML IV ONE (03:46)
--- NOTE | 2021-02-19 04:00 | NUR ---
Patient returned from CT stable, no complaints of increased pain. Patient back on the monitor.
[2021-02-19] MEDS ORDERED: FAMO-132 PO (04:35)
[2021-02-19 05:29] VITALS: BP 111/68
--- NOTE | 2021-02-19 05:31 | NUR ---
Patient discharged home stable A/Ox4. Discharge instructions explained to the patient, verbalized understanding.
== END 2021-02-19 05:34 | disposition home or self-care (01) ==
LOC: ER 00:53
DX: R10.13 Epigastric pain (principal); Z87.442 Personal history of urinary calculi; Z88.1 Allergy status to other antibiotic agents; Z79.82 Long term (current) use of aspirin; Z79.899 Other long term (current) drug therapy; R10.11 Right upper quadrant pain; K76.0 Fatty (change of) liver, not elsewhere classified; J43.8 Other emphysema; K57.30 Diverticulosis of large intestine without perforation or abscess without bleeding
CPT/HCPCS: 74177; 76705; 80048; 80076; 83690; 84484; 85025; 93005; 96361; 96374; 96375; 99285; C9113; J2270; J2405; J3010; Q9967; 70030-TC; A4663; J7050

== ENCOUNTER 2021-04-18 17:12 | Emergency (ER) | payer OTHER ==
[~2021-04-18] VITALS: Ht 167.6 cm; Wt 77.1 kg
[~2021-04-18 17:12] MED LIST changes: +FAMO-132 PO
--- NOTE | 2021-04-18 17:28 | NUR ---
at bedside for assessment
[2021-04-18] MEDS ORDERED: ONDANSETRON 4 MG/2 ML VIAL IV ONE (17:30)
[2021-04-18] MEDS ORDERED: IV NORMAL SALINE 1000 ML BAG IV ONE (17:30)
[2021-04-18] MEDS ORDERED: MORPHINE SULFATE 2 MG/1 ML DISP.SYRIN IV ONE (17:30)
[2021-04-18] MEDS ORDERED: MORPHINE SULFATE 4 MG/1 ML DISP.SYRIN ONE (17:42)
[2021-04-18] MEDS ORDERED: ONDANSETRON 4 MG/2 ML VIAL ONE (17:42)
[2021-04-18] MEDS ORDERED: SWABABLE VALVE TRANSFER SET EA MC ONE (18:00)
--- NOTE | 2021-04-18 18:00 | NUR ---
Patient to radiology department for CT of abdomen/chest/pelvis with contrast, consent for contrast signed by patient
[2021-04-18] MEDS ORDERED: IOHEXOL 300MG/ML 100 ML INFUS..BTL ONE (18:01)
[2021-04-18] MEDS ORDERED: IV NORMAL SALINE 250 ML IV ONE (18:01)
[2021-04-18 18:07] LABS: BASOPHILS # (AUTO) 0.1 K/uL (0.0-8.0); BASOPHILS % (AUTO) 0.6 % (0.0-2.0); EOSINOPHILS # (AUTO) 0.1 K/uL (0.0-0.7); EOSINOPHILS % (AUTO) 1.4 % (0.0-7.0); HEMATOCRIT 40.9 % (36.7-47.1); HEMOGLOBIN 13.9 g/dL (12.5-16.3); LYMPHOCYTES # (AUTO) 2.7 K/uL (20.0-40.0); LYMPHOCYTES % (AUTO) 25.8 % (20.5-51.5); MEAN CORPUSCULAR HGB CONC 34 g/dL (32.5-36.3); MEAN CORPUSCULAR VOLUME 93.8 fL (73.0-96.2); MONOCYTES # (AUTO) 0.9 K/uL (2.0-10.0); MONOCYTES % (AUTO) 8.5 % (0.0-11.0); NEUTROPHILS # (AUTO) 6.5 K/uL (1.8-8.9); NEUTROPHILS % (AUTO) 63.7 % (38.5-71.5); PLATELET COUNT (AUTO) 379 K/uL (152-348); RED BLOOD CELL COUNT(AUTO) 4.36 MIL/uL (4.06-5.63); WHITE BLOOD COUNT (AUTO) 10.3 K/uL (3.6-10.2)
[2021-04-18 18:12] LABS: CARBON DIOXIDE 29 mmol/L (21-32); CHLORIDE 106 mmol/L (98-107); CREATININE 0.8 mg/dL (0.6-1.3); GLUCOSE 97 mg/dL (74-106); POTASSIUM 4.2 mmol/L (3.5-5.1); UREA NITROGEN, BLOOD 18 mg/dL (7-18)
[2021-04-18 18:18] LABS: ALANINE AMINOTRANSFERASE 32 U/L (16-63); ALKALINE PHOSPHATASE 112 U/L (50-136); ASPARTATE AMINOTRANSFERASE 16 U/L (15-37); BILIRUBIN,DIRECT < 0.1 mg/dL (0.0-0.2); BILIRUBIN,TOTAL 0.1 mg/dL (0.2-1.0); TOTAL PROTEIN, SERUM 7.1 g/dL (6.4-8.2)
[2021-04-18] MEDS ORDERED: IBUP-1955 PO (18:30)
[2021-04-18] MEDS ORDERED: HYDR-4209 PO (18:30)
--- NOTE | 2021-04-18 18:43 | NUR ---
Patient discharged to home in stable condition. Written and verbal after care instructions given. Patient verbalizes understanding of instructions. Stressed follow up or return to ER for worsening s/s.
[2021-04-18 18:44] VITALS: BP 131/73
== END 2021-04-18 18:44 | disposition home or self-care (01) ==
LOC: ER 17:14
DX: S20.212A Contusion of left front wall of thorax, initial encounter (principal); W17.89XA Other fall from one level to another, initial encounter; Y92.89 Other specified places as the place of occurrence of the external cause; D72.829 Elevated white blood cell count, unspecified; E78.5 Hyperlipidemia, unspecified; I25.10 Atherosclerotic heart disease of native coronary artery without angina pectoris; K21.9 Gastro-esophageal reflux disease without esophagitis; Z87.442 Personal history of urinary calculi
CPT/HCPCS: 36415; 71260; 74177; 80048; 80076; 85025; 93005; 96361; 96374; 96375; 99285; J2270; J2405; Q9967; A4663; J7030; J7050

== ENCOUNTER 2021-10-06 17:34 | Emergency (ER) | payer OTHER ==
[~2021-10-06] VITALS: Ht 167.6 cm; Wt 81.6 kg
[~2021-10-06 17:34] MED LIST changes: +HYDR-4209 PO; +IBUP-1955 PO
[2021-10-06] MEDS ORDERED: KETOROLAC TROMETHAMINE 30 MG INJ IM ONE (18:30)
[2021-10-06] MEDS ORDERED: LIDOCAINE 5% PATCH TD ONE ×2 (18:30→18:54)
[2021-10-06] MEDS ORDERED: ACETAMINOPHEN 325 MG TABLET PO ONE (18:30)
[2021-10-06] MEDS ORDERED: MORPHINE SULFATE 4 MG/1 ML DISP.SYRIN IM ONE (18:30)
[2021-10-06] MEDS ORDERED: DEXAMETHASONE SOD PHOSPHATE 4 MG INJ IM ONE (18:30)
--- NOTE | 2021-10-06 18:46 | NUR ---
MORPHINE 3MG IVP GIVEN, WASTED ONE MG OF MORPHINE WITH PHILOMENA Collier RN.
[2021-10-06] MEDS ORDERED: MORPHINE SULFATE 4 MG/1 ML DISP.SYRIN ONE (18:53)
[2021-10-06] MEDS ORDERED: ACETAMINOPHEN 325 MG TABLET ONE (18:53)
[2021-10-06] MEDS ORDERED: KETOROLAC TROMETHAMINE 30 MG INJ ONE (18:53)
[2021-10-06] MEDS ORDERED: DEXAMETHASONE SOD PHOSPHATE 10 MG INJ ONE (18:54)
[2021-10-06] MEDS ORDERED: BACL10TA PO (19:23)
[2021-10-06] MEDS ORDERED: LIDO30AD10 TD (19:23)
[2021-10-06] MEDS ORDERED: HYDR-3972 PO ×2 (19:23→20:25)
[2021-10-06] MEDS ORDERED: IBUP-1955 PO (19:23)
[2021-10-06 19:31] VITALS: BP 142/79
--- NOTE | 2021-10-06 19:31 | NUR ---
Patient discharged to home in stable condition. Written and verbal after care instructions given. Patient verbalizes understanding of instructions. Stressed follow up or return to ER for worsening s/s. Patient out of ER with steady gait, no acute signs of distress, VSS, all belongings taken, instructed not to drive, will uber home.
== END 2021-10-06 19:32 | disposition home or self-care (01) ==
LOC: ER 17:37
DX: M54.41 Lumbago with sciatica, right side (principal); G89.29 Other chronic pain; R03.0 Elevated blood-pressure reading, without diagnosis of hypertension; F17.210 Nicotine dependence, cigarettes, uncomplicated; Z79.899 Other long term (current) drug therapy; Z79.82 Long term (current) use of aspirin; K21.9 Gastro-esophageal reflux disease without esophagitis; Z98.61 Coronary angioplasty status
CPT/HCPCS: 96372 ×2; 99284; 99406; J1100; J1885; J2270; A4663

== ENCOUNTER 2023-03-02 21:19 | Emergency (ER) | payer MEDICAID ==
[~2023-03-02] VITALS: Ht 167.6 cm; Wt 79.4 kg
[~2023-03-02 21:19] MED LIST changes: -ATOR40TA PO; +BACL10TA PO; +HYDR-3972 PO; +LIDO30AD10 TD; +OXYC-128 PO; -OXYC-133 PO
--- NOTE | 2023-03-02 22:35 | NUR ---
Dr. Sultana at bedside. MSE in progress.
[2023-03-02] MEDS ORDERED: ONDA4TAB5 PO (22:45)
[2023-03-02] MEDS ORDERED: HYDR2TAB7 PO (22:45)
[2023-03-02] MEDS ORDERED: HYDROMORPHONE HCL 2 MG TABLET ONE (22:49)
[2023-03-02] MEDS ORDERED: ONDANSETRON ODT 4 MG TAB.RAPDIS ONE (22:49)
[2023-03-02] MEDS ORDERED: ONDANSETRON ODT 4 MG TAB.RAPDIS SL ONE (23:00)
[2023-03-02] MEDS ORDERED: HYDROMORPHONE HCL 2 MG TABLET PO ONE (23:00)
[2023-03-02 23:40] VITALS: BP 142/85
== END 2023-03-02 23:37 | disposition home or self-care (01) ==
LOC: ER 21:26
DX: G89.29 Other chronic pain (principal); M54.50 Low back pain, unspecified; K21.9 Gastro-esophageal reflux disease without esophagitis; F17.210 Nicotine dependence, cigarettes, uncomplicated; Z88.1 Allergy status to other antibiotic agents; Z79.899 Other long term (current) drug therapy
CPT/HCPCS: A4663; Q0162

== ENCOUNTER 2023-07-10 20:52 | Emergency (ER) | payer MEDICAID ==
[~2023-07-10] VITALS: Ht 165.1 cm; Wt 68.0 kg
[~2023-07-10 20:52] MED LIST changes: -ASPI81TA31 PO; -BACL10TA PO; -FAMO-132 PO; -HYDR-3972 PO; -HYDR-4209 PO; -IBUP-1955 PO; -LIDO30AD10 TD; +NITR0.4T48 SL; -OXYC-128 PO
[2023-07-10] MEDS ORDERED: ONDANSETRON ODT 4 MG TAB.RAPDIS SL ONE (21:30)
[2023-07-10] MEDS ORDERED: HYDROMORPHONE HCL 2 MG TABLET PO ONE (21:30)
[2023-07-10] MEDS ORDERED: ONDANSETRON ODT 4 MG TAB.RAPDIS ONE (21:36)
[2023-07-10] MEDS ORDERED: HYDROMORPHONE HCL 2 MG TABLET ONE (21:37)
[2023-07-10 23:11] VITALS: BP 123/83; O2SAT 97
== END 2023-07-10 23:11 | disposition left against medical advice (07) ==
LOC: ER 20:54
DX: G89.29 Other chronic pain (principal); M54.50 Low back pain, unspecified; K21.9 Gastro-esophageal reflux disease without esophagitis; F17.210 Nicotine dependence, cigarettes, uncomplicated; Z88.1 Allergy status to other antibiotic agents; Z79.82 Long term (current) use of aspirin; Z79.899 Other long term (current) drug therapy
CPT/HCPCS: 72131; A4663; Q0162

== ENCOUNTER 2025-05-30 23:55 | Emergency (ER) | payer MEDICAID ==
[~2025-05-30] VITALS: Ht 167.6 cm; Wt 77.1 kg
[2025-05-31] VITALS: O2SAT 97
== END 2025-05-31 03:15 | disposition left against medical advice (07) ==
LOC: ER 05-31
DX: R21 Rash and other nonspecific skin eruption (principal); Z53.21 Procedure and treatment not carried out due to patient leaving prior to being seen by health care provider
CPT/HCPCS: A4606; A4663